=== PATIENT | female | born 1995 | race Caucasian/White ===

== ENCOUNTER → 2022-03-31 11:06 | Outpatient (CLI) | payer OTHER, SELFPAY ==
--- NOTE | ~2022-03-31 | US_ITS ---
EXAMINATION: US OB <=14 wk fetus w TV DATE: 03/31/2022 11:33 INDICATION: Threatened , first trimester TECHNIQUE: Real-time pelvic transabdominal and transvaginal ultrasound was performed. COMPARISON: Outside ultrasound dated 03/24/2022 FINDINGS: The uterus measures 9.6 x 5.8 x 5.7 cm. There is an intrauterine gestational sac. A yolk s ac is identified. No heart motion is detected. The crown rump length measures 5 mm , whic h correlates with an estimated gestational age of 6 weeks and 1 day(s) (+/-) 4 day(s). Previous crown -rump length measured 6 mm. The right ovary measures 2.9 x 1.9 x 2.4 cm. The left ovary measures 4 x 3.1 x 4.1 cm. There is savannah l vascular flow in the ovaries. There is no free fluid in the pelvis. IMPRESSION: 1. Findings consistent with failure. Absence of heart tones and a 5 mm pole wou ld be suspicious for failure as isolated findings however when coupled with decrease in microbiology laboratory manager wn-rump length since the comparison examination, findings are consistent with failure. Reviewed, dictated and finalized at location A. IMPRESSION: 1. Findings consistent with failure. Absence of heart tones and a 5 mm pole would be suspicious for failure as isolated findin gs however when coupled with decrease in crown-rump length since the comparison examination, findings are consistent with failure.
== END ==
PROVIDERS: PCP Obstetrics & Gynecology; Visit Provider Obstetrics & Gynecology
DX: O20.0 Threatened abortion (principal); Z3A.00 Weeks of gestation of pregnancy not specified
CPT/HCPCS: 76801; 76817

== ENCOUNTER 2023-05-06 00:01 | Inpatient (IN) | payer OTHER, SELFPAY ==
[2023-05-06] VITALS (49 sets, daily range): BP systolic 95–160; BP diastolic 34–99; PULSE 75–130; TEMP 36.1–37.3; O2SAT 97–100; BMI 30.4
[2023-05-06 00:43] LABS: Basophils Absolute Auto 0.1 K/mm3 (0.0-0.1); Basophils Percent Auto 0.8 % (0.2-1.2); Eosinophils Absolute Auto 0.3 K/mm3 (0-0.3); Eosinophils Percent Auto 1.9 % (0-4.4); Hematocrit 40.5 % (37.0-47.0); Hemoglobin 13.4 g/dL (12.0-15.0); Immature Granulocyte Absolute 0.14 K/mm3 (0.00-0.031); Lymphocytes Absolute Auto 3.55 K/mm3 (0.9-3.2); Lymphocytes Percent Auto 24.7 % (18.3-44.2); Mean Corpuscular HGB Conc 33.1 g/dl (32-36); Mean Corpuscular Hemoglobin 30.6 pg (26-34); Mean Corpuscular Volume 92.5 fl (80-100); Mean Platelet Volume 9.7 fl (7.4-10.4); Monocytes Absolute Auto 0.9 K/mm3 (0.1-0.6); Monocytes Percent Auto 6.3 % (2.6-8.5); Neutrophils Absolute Auto 9.4 K/mm3 (1.3-6.7); Neutrophils Percent Auto 65.3 % (45.5-73.1); Platelet Count Result 259 k/mm3 (150-375); Red Blood Count 4.38 M/mm3 (4.2-5.4); Red Cell Distribution Width 13.1 % (11.5-14.5); White Blood Count 14.4 K/mm3 (4.5-10.0)
[2023-05-06] MEDS: miSOPROStol 25 MCG TABLET 50 MCG SUBLINGUAL (00:46)
--- NOTE | 2023-05-06 00:55 | LDADM ---
This patient, Gloria Elam, was admitted to Labor/Delivery/Recovery 104 on 05/06/23 at 00:01. Plans for labor, pain management and were discussed with patient. Patient/family oriented to hospital policies and general routines including ID bracelet, bed and alarms, visiting hours, pain management, procedures, bathroom and other care routines, personal items, smoking policy, room service/diet and guest tray routines, security routines, and visiting hours. Patient/Family are encouraged to report perceived risks to care and to ask questions if they do not understand what they are told or what they should do. See OBIX for further documentation.
[2023-05-06 01:20] LABS: Glucose Point of Care 98 mg/dl (65-105)
[2023-05-06] MEDS: miSOPROStol 25 MCG TABLET VAGINAL (05:40)
[2023-05-06] MEDS: LACTATED RINGERS 1,000 ML 125 ML IV CONT (05:53)
[2023-05-06] MEDS: VANCOMYCIN 1,000 MG/NS 250 ML 1,000 MG/250 ML BAG 250 MG IVPB ×2 (05:53→13:25)
[2023-05-06 06:03] LABS: Glucose Point of Care 88 mg/dl (65-105)
--- NOTE | 2023-05-06 07:03 | WPDHPUPDATE1 ---
History and Physical Update Update Date/Time: 05/06/23 07:03 28 yo at 39w2d who presents for IOL for GDM. has been complicated by diet controlled gestational diabetes. She has had good glycemic control. History and Physical has been reviewed, including an updated exam of the patient. There are NO changes in the patient's condition. Risks, benefits, and alternatives have been discussed and questions answered. Patient agrees to proceed with procedure. A/P: admit to L&D routine admission orders Rh positive GBS positive bacteriuria, will initiate vancomycin continuous external monitoring Will monitor blood sugars throughout induction of labor Will plan for misoprostol induction of labor
--- NOTE | 2023-05-06 09:07 | WPDANESEPP ---
Anes - Eval Pre Procedure Procedure: labor epidural Date/Time: 05/06/23 09:07 Surgeon: flori Preop Diagnosis: pain during labor Pre Op Diagnosis: IOL Patient Data Age: 28 Gender: F Height: 1.73 m Weight: 90.718 kg Last Vital Signs Temp 36.6 C 05/06/23 06:14 Pulse 77 05/06/23 09:04 BP 106/63 05/06/23 09:04 O2 Del Method Room Air 05/06/23 00:55 Allergies Allergy/AdvReac Type Severity Reaction Status Date / Time cephalexin Allergy Severe Hives Verified 05/06/23 01:03 clavulanic acid Allergy Severe Hives Verified 05/06/23 05:37 Penicillins Allergy Severe Hives Verified 05/06/23 01:03 amoxicillin Allergy Mild hives Verified 05/06/23 01:03 Home Medications Medication Instructions Recorded Confirmed Type albuterol sulfate 90 mcg/actuation 1 puff inhalation Q4H PRN Wheezing 03/11/22 02/17/23 History aerosol inhaler vits no.10-ferrous 1 tablet PO DAILY 03/11/22 02/17/23 History fumarate 65 mg iron-folic acid 1 mg tablet triamcinolone acetonide 0.1 % 1 applic topical BID #60 mL 12/17/22 02/17/23 Rx lotion aspirin 81 mg tablet,delayed 162 mg PO DAILY 03/17/23 History release Laboratory Tests 05/06/23 05/06/23 05/06/23 00:37 01:15 05:58 WBC 14.4 H K/mm3 (4.5-10.0) RBC 4.38 M/mm3 (4.2-5.4) Hgb 13.4 g/dL (12.0-15.0) Hct 40.5 % (37.0-47.0) MCV 92.5 fl (80-100) MCH 30.6 pg (26-34) MCHC 33.1 g/dl (32-36) RDW 13.1 % (11.5-14.5) Plt Count 259 k/mm3 (150-375) MPV 9.7 fl (7.4-10.4) Immature Gran % (Auto) 1.0 H % (0-0.5) Neut % (Auto) 65.3 % (45.5-73.1) Lymph % (Auto) 24.7 % (18.3-44.2) [place] % (Auto) 6.3 % (2.6-8.5) Eos % (Auto) 1.9 % (0-4.4) Baso % (Auto) 0.8 % (0.2-1.2) Lymph # (Auto) 3.55 H K/mm3 (0.9-3.2) [place] # (Auto) 0.9 H K/mm3 (0.1-0.6) Eos # (Auto) 0.3 K/mm3 (0-0.3) Baso # (Auto) 0.1 K/mm3 (0.0-0.1) Abs Immat Gran (auto) 0.14 H K/mm3 (0.00-0.031) Absolute Neuts (auto) 9.4 H K/mm3 (1.3-6.7) Absolute Nucleated RBC 0.0 K/mm3 (0.0-0.012) Nucleated RBC % 0.0 % (0.0-0.2) POC Capillary Glucose 98 mg/dl 88 mg/dl (65-105) (65-105) RPR Pending Blood Type O Positive Antibody Screen Negative Patient hx anesthesia problems: none Family hx anesthesia problems: none Results Review: All pre-operative results and documents have been reviewed as part of the pre-operative evaluation. [facility] Past Medical History Medical History Asthma sports induced Blood glucose abnormal Encounter for Nexplanon removal 12/03/2021 Irregular periods Nexplanon in place Suppression of menses Surgical History Surgical History [place] teeth extracted Family History Family History Grandparent Diabetes mellitus Cerebrovascular accident Family history of malignant neoplasm of cervix Family history of malignant neoplasm of ovary Father Hypertension Mother Endometriosis Social History Social History Smoking status: Former smoker Tobacco type: e-cigarettes/vaping Second hand tobacco smoke exposure: No Smoking end date: 10/05/16 Substance use: never Lack of Transportation: No Lack of Food: Never True Current Housing: I Have Housing Concerned About Future Housing: No Difficulty Paying Gas/Electric Bills: No Difficulty Paying for Meds: No Currently Unemployed: No Education: Bachelor's Degree Difficulty w/ Childcare or Family Care: No Living arrangements: with family 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
[2023-05-06 09:21] LABS: Rapid Plasma Reagin Non-Reactive (NonReactive)
[2023-05-06 10:05] LABS: Glucose Point of Care 85 mg/dl (65-105)
[2023-05-06] MEDS: OXYTOCIN 30 UNITS/NS 500 ML 30 UNITS/500 ML BAG 6 UNITS IV CONT (10:33)
--- NOTE | 2023-05-06 12:02 | PM.OBPNLAB ---
Pain Control Date/time seen: 05/06/23 12:02 Pain control: tolerating well Pelvic Exam Dilation (cm): 2 Effacement (%): 60 station: -4 Amniotic membrane status: Intact Status status: Category l Assessment and Plan Assessment: induction ongoing Comments: cervical miller balloon placed. Will continue pitocin
[2023-05-06 14:28] LABS: Glucose Point of Care 66 mg/dl (65-105)
--- NOTE | 2023-05-06 16:48 | PC.NURSE ---
1635 - Introductions were made and mother shared how she would like to feed her baby with along with her past experience. Encouraged mother to place [id number] until the first feeding if infant is stable and to wait on the weight to help stabilize, reduce stress, and improve latching by allowing infant time to explore parent's chest using instincts. Education was shared on how to protect her milk supply with latching and/or using hand expression to remove milk if infant doesn't latch in the first hour, then finger feed colostrum to the to preserve breast focus. Resources provided with educational trifold for bonding and feeding . Parents voiced understanding of information and to call if there is a request for assistance.
[2023-05-06] MEDS: fentaNYL CITRATE INJ (*CRX) 100 MCG/2 ML VIAL 50 MCG IV PUSH (18:18)
[2023-05-06 18:25] LABS: Glucose Point of Care 76 mg/dl (65-105)
--- NOTE | 2023-05-06 21:25 | P.PCNOB_ITS ---
OB - Delivery Note Procedure Procedure: Patient pushed for a spontaneous vaginal delivery. Nuchal cord x1 was noted and reduced at the perineum. The fetus was delivered atraumatically and placed on the maternal abdomen. The cord was clamped and cut after 1 minute of life. The cord was double clamped and cut and a segment of cord was collected for cord gases. Cord blood was collected for blood type and Coomb's testing. The placenta delivered spontaneously and was noted to be intact. The perineum was inspected and there was a 2nd degree perineal laceration and right labial laceration. The lacerations were repaired with 3-0 vicryl in the usual fashion. The uterus was firm and good hemostasis was noted. The patient and fetus were stable in the delivery room. Events: Gestational Diabetes Induction method: Per Misoprostol Protocol Delivery augmentation: Pitocin and Other (cervical miller bulb) Delivery monitor: External FHT Route of delivery: Episiotomy description: None Laceration Description: Perineal - 2nd Degree and Labial (right) Delivery repair: vicryl Specimen: No Quantitative Blood Loss (ml): 200 Anesthesia type: None Disposition: Floor () Complications: No immediate complications [place] Baby Date of : 05/06/23 Time of : 20:59 Weeks of gestation at delivery: 39 Infant gender: Male presentation: vertex position: Right Occiput Anterior Placenta delivery description: Spontaneous Cord Vessel Description: 3 Vessels and Nuchal Cord score one minute: 8 score five minutes: 8 AMG Delivery Billing Delivery Delivery: Delivery Charge
[2023-05-06] MEDS: miSOPROStol 200 MCG TABLET 1000 MCG RECTAL (22:17)
[2023-05-06] MEDS: ACETAMINOPHEN 325 MG TABLET 650 MG PO (23:11)
[2023-05-06] MEDS: BENZOCAINE 20% AER SPR (*SP) 56 GM CAN 1 SPRAY TOPICAL (23:12)
[2023-05-06] MEDS: WITCH HAZEL 40 PADS 1 PAD TOPICAL (23:12)
[2023-05-07 00:01] VITALS: BP 128/73; PULSE 109
--- NOTE | 2023-05-07 00:35 | PC.NURSE ---
Patient transferred to post room #279 per wheelchair from labor and delivery. Support person present. Oriented to unit, room, information board, rooming in, admission packet and security measures. Patient verbalizes understanding.
[2023-05-07 00:50] VITALS: BP 123/74; PULSE 103; RESP 20; TEMP 37.1
--- NOTE | 2023-05-07 03:02 | LDADM ---
Patient 999 bag of PIT was started at 2102. IT was completed at 2114. Patient bag of 125 of Pit was started at 2114.
[2023-05-07 04:25] VITALS: BP 102/61; PULSE 98; RESP 18; TEMP 36.8
[2023-05-07 04:35] LABS: Hematocrit 32.5 % (37.0-47.0); Hemoglobin 10.5 g/dL (12.0-15.0)
[2023-05-07] MEDS: IBUPROFEN 600 MG TABLET PO ×2 (07:05→20:29)
[2023-05-07 08:10] VITALS: BP 111/71; PULSE 99; RESP 18; TEMP 36.9; O2SAT 99
--- NOTE | 2023-05-07 10:20 | P.PNOB_ITS ---
OB - PN: Subj Subjective Date/time seen: 05/07/23 10:20 Patient comments: no complaints, pain well controlled and tolerating diet [place] feeding status: exclusively breast feeding Narrative: patient doing well this AM. No complaints. Pain is well controlled. She reports minimal bleeding. She is ambulating and voiding without difficulty. She is tolerating PO. She denies N/V, fever, chills. OB - PN: Obj Data Labs 05/07/23 04:24 Labs: Laboratory Results - last 24 hr 05/06/23 05/06/23 05/07/23 14:23 18:19 04:24 Hgb 10.5 L Hct 32.5 L POC Capillary Glucose 66 76 OB - PN A/P Plan day: 1 Plan: routine care Comments: patient doing well H/H stable Patient desires circumcision. Risks, benefits, alternatives discussed. Maternal consent obtained. Will proceed with infant circumcision. continue routine care Time Spent With Patient Time: Total time spent is greater than 50% in coordination of care (as documented) at patient's floor/unit and/or counseling patient: Time with patient: less than 15 minutes Review of Systems Review of Systems: All systems reviewed & are unremarkable except as noted in HPI and below Exam Const: General: comfortable and no acute distress Resp: Effort & Inspection: normal respiratory effort Cardio: Rate: regular rate GI: GI Palp: Yes Soft to palpation and No Tenderness to palpation present (GI) Auscultation: normal bowel sounds Other: fundus firm and below umbilicus. Psych: Affect: normal affect
[2023-05-07] MEDS: MULTIVIT/MIN/PREN/FOL AC/IRON TABLET 1 TAB PO (11:15)
[2023-05-07] MEDS: ACETAMINOPHEN 325 MG TABLET 650 MG PO (11:15)
[2023-05-07 12:23] VITALS: BP 106/72; PULSE 99; RESP 16; TEMP 36.6; O2SAT 99
--- NOTE | 2023-05-07 15:52 | PC.NURSE ---
[id number] Purposefully rounded to assess for needs. Mother led conversation with her experience with feeding baby so far and has infant latched to the left breast using cross cradle positioning. detaches and mother's nipple is misshaped. Mother works well with her with encouragement and agrees to try football positioning again. Reviewed working with , supporting breast and how to protect the nipples with an optimal deep latch, good positioning, and good hand washing. Encouraged understanding the benefits of skin to skin, responding to feeding cues, frequencies of feeding 8-12 times in 24 hours (approximately 2-3 hours), duration of feedings, milk production, intake/output feeding sheet and signs of adequate intake encouraging swallowing at the breast. Reviewed positioning and alignment, supporting breast, off-centered (asymmetrical latch) and leading with the chin with big, open, wide gape. Infant latched optimally to the right breast in football position. Education given to mother of how to visualize suck/swallow ratios and listen for drinking at the breast. was able to maintain latch without discomfort to mother. Nipple care reviewed with optimal latch, good positioning and using clean hands when feeding her infant and touching her breast. Resources used to facilitate learning were used from the tool, mom and baby guide. Parents voiced understanding of the education shared, to call for assistance if the infant does not latch or if there is discomfort with . Reported to the primary RN. [id number] Purposefully rounded to assess needs. Reviewed working with , supporting breast and how to protect the nipples with an optimal deep latch, good positioning, and good hand washing. Demonstrated waking infant to breastfeed using a warm wet wash cloth. Reviewed positioning and alignment, supporting breast, off-centered (asymmetrical latch) and leading with the chin with big, open, wide gape. Infant latched optimally to the right breast in football position. Education given to mother of how to visualize suck/swallow ratios and listen for drinking at the breast. was able to maintain latch without discomfort to mother. Nipple care reviewed with optimal latch and good positioning. Parents voiced understanding of the education shared, to call for assistance if the does not latch or if there is discomfort with . Reported to the primary RN.
[2023-05-07 20:25] VITALS: BP 107/67; PULSE 90; RESP 18; TEMP 37.2
[2023-05-08 07:30] VITALS: BP 108/66; PULSE 81; RESP 16; TEMP 36.9; O2SAT 99
--- NOTE | 2023-05-08 08:24 | PM.OBDSVD ---
DS: Admitting Diagnosis Discharge Date 05/08/23 Admitting Diagnosis intrauterine at term gestational diabetes DS: Discharge Diagnosis Discharge Diagnosis (1) Supervision of high risk , unspecified, third trimester: Code(s): O09.93 - Supervision of high risk , unspecified, third trimester Status: Acute (2) Gestational diabetes: Code(s): O24.419 - Gestational diabetes mellitus in , unspecified control Status: Acute OB - DS: Summary OB Procedures : None OB Procedures Intrapartum: Spontaneous Vag Delivery OB Procedures: : None Status at Discharge Functional status at discharge: independent ambulation Overall status at discharge: patient is back to baseline Time Spent with Patient Time attestation: Total time spent providing and/or coordinating discharge services: Time spent: Less than 30 minutes Exam Const: General: comfortable and no acute distress Resp: Effort & Inspection: normal respiratory effort Auscultation: clear to auscultation bilaterally Cardio: Rate: regular rate GI: GI Palp: Yes Soft to palpation Auscultation: normal bowel sounds Other: Fundus firm below umbilicus Psych: Appearance: grossly normal Mental Status: mental status grossly normal Affect: normal affect DS: Data Data Completed and Pending Pending studies at discharge: Pending at discharge 05/06/23 21:15 Surgical [PTH] Routine Discharge Plan Discharge Discharging Clinician: Oscar Solomon Patient Disposition: Home, Self-Care Activity: as tolerated and pelvic rest Diet: regular Patient Instructions: Antibiotic Form, How to Stop Smoking (DC), Vaginal Delivery (DC) Stand Alone Forms: General Discharge Information Follow-up/Referrals: Oscar Solomon MD [Physician] - Discharge Medications: New ibuprofen 600 mg tablet 600 mg PO Q6H PRN (Reason: pain) Qty: 30 0RF acetaminophen 500 mg tablet 500 mg PO Q6H PRN (Reason: pain) Qty: 30 0RF Continued vit 10-iron fum-folic 65-1 mg tablet 1 tablet PO DAILY albuterol sulfate 90 mcg/actuation HFA aerosol inhaler 1 puff inhalation Q4H PRN (Reason: Wheezing) aspirin 81 mg tablet,delayed release (DR/EC) 162 mg PO DAILY triamcinolone acetonide 0.1 % lotion 1 applic topical BID Qty: 60 1RF Date of admission: 05/06/23 00:01 Primary Care Provider: LinoJuanito Admitting Provider: Nichol Rodriguez Attending physician on admission: Nichol Rodriguez Condition: Stable
[2023-05-08] MEDS: BENZOCAINE 20% AER SPR (*SP) 56 GM CAN 1 SPRAY TOPICAL (09:15)
[2023-05-08] MEDS: DOCUSATE SODIUM 100 MG CAPSULE PO (09:28)
[2023-05-08] MEDS: IBUPROFEN 600 MG TABLET PO (09:28)
[2023-05-08] MEDS: MEASLES,MUMPS,RUBELLA VACCINE 0.5 ML VIAL SUB-Q (09:29)
[2023-05-08] MEDS: WITCH HAZEL 40 PADS 1 PAD TOPICAL (09:29)
[2023-05-08] MEDS: MULTIVIT/MIN/PREN/FOL AC/IRON TABLET 1 TAB PO (09:29)
[2023-05-08] MEDS: LANOLIN (LANSINOH) 7.5 GM CREAM 1 APPLIC TOPICAL (09:29)
--- NOTE | 2023-05-08 10:28 | PC.NURSE ---
Patient viewed the discharge video Mother & Baby Care, The First Two Weeks . Patient was given the opportunity and encouraged to ask questions. Patient verbalized understanding of information shared and has been given the mother/baby guide for home reference.
[2023-05-09 08:55] VITALS: BP 112/75; PULSE 86; RESP 16; TEMP 37.1; O2SAT 99
== END 2023-05-08 10:47 | disposition home or self-care (01) | DRG 807 ==
LOC: ANHLDR 01:07 → ANHOB2 05-08 08:26 → ANHLDR 05-11 09:20 → ANHOB2 05-11 09:20
PROVIDERS: Obstetrics & Gynecology; Admitting Provider Student in an Organized Health Care Education/Training Program; PCP Internal Medicine; Visit Provider Student in an Organized Health Care Education/Training Program
DX: O24.429 Gestational diabetes mellitus in childbirth, unspecified control (principal); Z37.0 Single live birth; Z3A.39 39 weeks gestation of pregnancy; O70.1 Second degree perineal laceration during delivery; O69.81X0 Labor and delivery complicated by cord around neck, without compression, not applicable or unspecified; O99.824 Streptococcus B carrier state complicating childbirth
CPT/HCPCS: 36415; 82948; 85014; 85018; 85025; 86592; 86850; 86900; 86901; 88307; 90710; A9270; J2590; J3010; J3370; J7120

== ENCOUNTER 2024-08-06 10:11 | Outpatient (CLI) | payer OTHER, SELFPAY ==
--- NOTE | ~2024-08-06 | US_ITS ---
US OB <=14 wk fetus w TV DATE: 08/06/2024 10:54 INDICATION: Assessment of viability TECHNIQUE: Real-time imaging and Doppler analysis transabdominal and transvaginal approaches COMPARISON: None FINDINGS: The uterus measures 10.0 cm sagittal, 6.5 cm AP and 7.4 cm transverse dimension. There is a single live intrauterine gestation. heart rate of 176 bpm. Yolk sac is identified. There is a 4.5 x 13 x 17 mm subchorionic hematoma. [place]-rump length measures 2.24 cm, consistent with 9 weeks +/- 6 days; MAURA: 03/11/2025. Maternal right ovary measures 2.2 x 2.2 x 1.8 cm. Maternal left ovary measures 3.4 x 2.4 x 3.3 cm. IMPRESSION: Subchorionic hematoma Estimated gestational age is 9 weeks +/- 6 days; MAURA: 03/11/2025 Reviewed, dictated and finalized at Location A. Reviewed, dictated and finalized at location A.
== END 2024-08-06 10:12 | disposition home or self-care (01) ==
LOC: MICIMG 10:11
PROVIDERS: PCP Internal Medicine; Visit Provider Student in an Organized Health Care Education/Training Program
DX: N94.89 Other specified conditions associated with female genital organs and menstrual cycle (principal); Z3A.09 9 weeks gestation of pregnancy
CPT/HCPCS: 76801; 76817

== ENCOUNTER 2025-03-17 04:40 | Inpatient (IN) | payer OTHER, SELFPAY ==
[2025-03-17] VITALS (27 sets, daily range): BP systolic 105–160; BP diastolic 43–140; PULSE 89–166; RESP 18–20; TEMP 36.6–37.4; O2SAT 94–100; BMI 32.7
--- OUTSIDE RECORDS SUMMARY | 2025-03-17 04:49 | XMS_ITS | Clinical Summary ---
Author Organization [facility] [place] Address [address] [place] [address] Care Team Providers Care Dry Plasterer Name Role Phone Yesenia Arriaga MD Unavailable Yesenia Arriaga MD Primary Care Provider [phone] Source Comments [facility],non-owned Affiliates and Associated Physician Practices is amultiple site organization consisting of ambulatory clinics and hospital sitesin [place], [place], [place]. This disclosure is being madepursuant to the Care Everywhere program and may not contain all information available regarding this patient. Last updated 18.[facility] Allergies Active Allergy Reactions Criticality Noted Date Comments Keflex Urticaria,Shortness of Breath High 2008 Penicillins Urticaria,Shortness of Breath High 08/23 Medications * Be aware that medications may not be up to date on this document. Alwaysverify current medications with the patient. SUMAtriptan (IMITREX) 50 MG tabletIndicatio ns:Migraine Take 1 Tab by mouth once as needed for Migraine for 1 dose. 9 Tab 3 07/04/20 13 Active Additional Information Patient not taking.Reported on 12/03/2022 Vit-Fe Fumarate-FA ( vitamin) 28-0.8 MG tablet Take 1 (one) tablet by mouth once daily Active albuterol (Proventil;Vent ezequiel) (2.5 MG/3ML) 0.083% nebulizer solutionIndicat ions:Reversible Obstructive Airway Disease Inhale by mouth once daily Reasons: Reversible Disease of Blockage in Breathing Passages Active fluticasone-tono meterol (Advair Diskus) 100-50 MCG/ACT inhalerIndicati ons:Asthma Inhale 1 (one) puff by mouth 2 times daily Rinse mouth after administration Reasons: Asthma 60 Each 2 12/04/19 23 Active Active Problems Problem Noted Date Diagnosed Date Diet controlled gestational diabetes mellitus (GDM) in second trimester 01/27/2023 Asthma 12/03/2022 Allergic rhinitis 07/13/2012 Migraine 07/13/2012 Immunizations Immunization Administration Dates Next Due INFLUENZA VACCINE, TRIV. (AF LURIA, FLUZONE TRIVALENT; 6MO+) (IIV3) 07/30/2010 DPT 02/26/2001, 7,1996,06/30,1996 HEP A PEDS 2 DOSE 05/20/2007,04/28/2006 HEP B VACCINE, PED/ADOL 1996,1996, HIB BOOSTER 06/15/1997, 6,1996,04/25 Human Papilloma Virus Carlo valent Vaccine 01/17/2013,09/13/2012,07/13/2012 INFLUENZA A A2G0-89 VACCINE 08/13/2009 INFLUENZA VACCINE 08/17/2006,07/30/2005 MENINGOCOCCAL ACWY (MCV4P) VAC IM 07/13/2012 MMR 02/26/2001,03/10/1997 POLIO IPV 02/26/2001 POLIO OPV 1996,1996,1996 PPD 02/27/2000,03/10/1997 TDAP (7yrs+) 04/28/2006 Family History Medical History Relation Name Comments High Cholesterol Father Cancer - Cervical Maternal Grandmother Diabetes - Type 2 Maternal Grandmother Hypertension Mother Diabetes - Type 2 Paternal Grandmother IN<65(female) Paternal Grandmother Relation Name Status Comments Father Maternal Grandmother Mother Other Paternal Grandmother Social History Tobacco Use Types Packs/Day Years Used Date Smoking Tobacco: Never Smokeless Tobacco: Never Tobacco Cessation:Counseling Given: Not Answered Alcohol Use Standard Drinks/Week Comments Not Currently 0 (1 standard drink = 0.6 oz pur e alcohol) Comments No Sex and Gender Information Value Date Recorded Sex Assigned at Not on file Legal Sex Female 6:48 AM TRANSITIONAL NURSE Gender Identity Not on file Sexual Orientation Not on file Last Filed Vital Signs Vital Sign Reading Time Taken Comments Blood Pressure 127/77 12/03/2022 9:29 AM TRANSITIONAL NURSE Pulse 85 12/03/2022 9:29 AM TRANSITIONAL NURSE Temperature 36.4 C (97.6 F) 07/28/2013 8:56 AM CDT Respiratory Rate 16 04/26/2010 9:13 AM CDT Oxygen Saturation - - Inhaled Oxygen Concentration - - Weight 89.4 kg (197 lb 3.2 oz) 12/03/2022 9:29 A M TRANSITIONAL NURSE Height 172.7 cm (5' 8) 12/03/2022 9:29 AM TRANSITIONAL NURSE Body Mass Index 29.98 12/03/2022 9:29 AM TRANSITIONAL NURSE Plan of Treatment Health Maintenance Due Date Last Done Comments HIV SCREENING 02/20/2011 HEPATITIS C SCREENING 02/16/2014 PNEUMOCOCCAL VACCINE (1 of 2 - PCV) 02/20/2015 DTAP/TDAP/TD VACCINES (7 - Td or Tdap) 04/28/2016 04/28/2006, 02/26/2001, 06/15/1997, Additional history exists PAP SMEAR 02/20/2017 COVID-19 VACCINE (1 - season) 2024 DEPRESSION SCREENING 10/05/2024 INFLUENZA VACCINE (Season Ended) 2025 07/30/2010, 08/13/2009, 08/17/2006, Additional history exists ZOSTER VACCINE (1 of 2) 02/20/2046 HEPATITIS B VACCINE Completed 1996, 1996, 1996 HIB VACCINE Completed 06/15/1997, 02/1996, 1996, Additional history exists MENINGOCOCCAL GROUPS A/C/Y/W VACCINE Completed 07/13/2012 HPV VACCINE Completed 01/17/2013, 09/04, 07/13/2012 MENINGOCOCCAL (Group B) VACCINE SHARED DECISION-MAKING Aged Out No longer eligible based on patient's age to complete this topic Insurance [facility] C[facility] Care Teams Dry Plasterer Relationship Specialty Start Date End Date Yesenia Arriaga MD PCP - Pediatrics 04/26/10 Yesenia Arriaga MD PCP - General Pediatrics 01/12/12
--- OUTSIDE RECORDS SUMMARY | 2025-03-17 04:49 | XMS_ITS | Encounter Summary ---
Author Organization [facility] Address [address] [place] [address] Care Team Providers Care Button Tufter Name Role Phone Yesenia Arriaga MD Unavailable Yesenia Arriaga MD Primary Care Provider [phone] Reason for Visit * Reason Comments Refill Request Encounter Details Date Type Department Care Team (Late st Contact Info) Description 02/09/2023 Refill [facility] Women's Health Maternal & Care [address] [place], [place] [id number] Ana Nguyễn, ELECTRICAL PROSPECTING OPERATOR-[facility] [address] [address] Refill Request Social History Tobacco Use Types Packs/Day Years Used Date Smoking Tobacco: Never Smokeless Tobacco: Never Alcohol Use Standard Drinks/Week Comments Not Currently 0 (1 standard drink = 0.6 oz pur e alcohol) Comments Yes Sex and Gender Information Value Date Recorded Sex Assigned at Not on file Legal Sex Female 6:48 AM SUPERVISOR GARMENT MANUFACTURING Gender Identity Not on file Sexual Orientation Not on file documented as of this encounter Plan of Treatment Not on file documented as of this encounter Visit Diagnoses Not on filedocumented in this encounter Care Teams Button Tufter Relationship Specialty Start Date End Date Yesenia Arriaga MD PCP - Pediatrics 04/26/10 Yesenia Arriaga MD PCP - General Pediatrics 01/12/12 documented as of this encounter
--- OUTSIDE RECORDS SUMMARY | 2025-03-17 04:49 | XMS_ITS | Data Portability ---
Author Organization [facility] Address [address] [place] [address] Assessment Encounter Date Assessment Date Assessment LastModified by Organization Details LastModified Time 01/20/2024 01/20/2024 I will get her seen by podiatry to see if they can do a further evaluation and possibly inspect a little bit closer to see if there is some ceramic tile that deeper in the [id number] Not available 01/30/2024 14:30:45 Plan of Treatment Reminders Order Date Submit Date Provider Last Modified By Organization Details Last Modified Time Details Appointments None record ed. Lab None record ed. Referral None record ed. Procedures None record ed. Surgeries None record ed. Imaging None record ed. Medication Orders None record ed. Patient TargetsNo targets recorded. Patient InstructionsNo instructions recorded. Reason for Referral None Reported. Results Created Date Observation Date Name Description Value Unit Range Abnormal Flag Note LastModifiedBy Organization Detail LastModifiedTime 08/06/20 24 08/06/2024 US, obste tric No observ ation record ed. [email or web address] [facility] [address], [place], [address], 08/08/2024 15:41:39 Result Notes None recorded. Medical Equipment None Reported. Allergies Allergen ID Allergen Name Allergen Category Reaction Reaction Severity Criticality Documentation Date Start Date Code Code System Note Provider Name and Address Organization Details Recorded Time 120951 Product containin g penicilli n (product) medicatio n wheezing moderate low 01/20/2024 71774 8001 SNOMED hives MYLES Remy, [facility] 09:48:34 [id number] Keflex medicatio n wheezing moderate Not available 01/20/202403498 7 RxNorm hives also MYLES Remy, [place] - [facility] 4 09:48:10 Medications Name Sig Start Date Stop Date Status Note LastModified by Organization Details LastModified Time fluticasone 250 mcg-salmetero l 50 mcg/dose blistr powdr for inhalation INHALE 1 PUFF BY MOUTH TWICE DAILY active Not Available Not Available No t Available fluconazole 150 mg tablet TAKE 1 TABLET BY MOUTH 1 TIME active Not Available Not Available No t Available ondansetron HCl 4 mg tablet TAKE 1 TABLET BY MOUTH EVERY 6 HOURS NEEDED FOR NAUSEA OR VOMITING active Not Available Not Available No t Available pimecrolimus 1 % topical cream active Not Available Not Available Not Available acetaminophen 500 mg tablet TAKE 1 TABLET BY MOUTH EVERY 6 HOURS NEEDED FOR PAIN active Not Available Not Available No t Available metoclopramid e 5 mg tablet TAKE 1 TABLET BY MOUTH DAILY active Not Available Not Available No t Available tacrolimus 0.1 % topical ointment active Not Available Not Available Not Available ibuprofen 600 mg tablet TAKE 1 TABLET BY MOUTH EVERY 6 HOURS NEEDED FOR PAIN active Not Available Not Available No t Available clindamycin 1 % lotion active Not Available Not Available Not Available OneTouch Verio test strips USE TO TEST BLOOD SUGARS FOUR TIMES DAILY active Not Available Not Available No t Available Combivent Respimat 20 mcg-100 mcg/actuation solution for inhalation INHALE 1 PUFF BY MOUTH FOUR TIMES DAILY NEEDED FOR SHORTNESS OF BREATH OR WHEEZING. SPACE EVENLY WHILE AWAKE active Not Available Not Available No t Available Amzeeq 4 % topical foam active Not Available Not Available Not Available Vitals Date Recorded Body height Body mass index (BMI) Body weight Heart rate Oxygen saturation Oxygen saturation in Arterial blood by Pulse oximetry Systolic blood pressure Diastolic blood pressure Provider Name and Address Organization Details Last Updated DateTime 4 172.72 cm 26.8 kg/m2 58225.6 9 g 81 /min 98 % 98 % 124 mm[Hg] 72 mm[Hg] JAMESON Poll[place] - [facility] 4 14:16:46 Social History Question Answer Notes LastModified by Organizat ion Details LastModified Time Tobacco Smoking Status Never Smoker JAMESON Poll[place], [place] - [facility] 01/20/2024 14:11:39 Do You Have An Advance Directive? No Information not available 01/20/2024 How Many Years Have You Consumed Alcohol? 6 Information not available 01/20/2024 Are You Blind Or Do You Have Difficulty Seeing? Yes Contacts Information not available 01/20/2024 What Is Your Level Of Caffeine Consumption? Moderate Information not available 01/20/2024 In The 14 Days Before Symptom Onset, Have You Had Close Contact With A Laboratory-confir med COVID-19 While That Case Was Ill? No Information not available 01/20/2024 In The 14 Days Before Symptom Onset, Have You Had Close Contact With A Person Who Is Under Investigation For COVID-19 While That Person Was Ill? No Information not available 01/20/2024 Have You Been To An Area Known To Be High Risk For COVID-19? No Information not available 01/20/2024 Are You Deaf Or Do You Have Serious Difficulty Hearing? No Information not available 01/20/2024 What Is The Highest Grade Or Level Of School You Have Completed Or The Highest Degree You Have Received? [id number] Information not available 01/20/2024 Are There Any Guns Present In Your Home? Yes Information not available 01/20/2024 What Was The Date Of Your Most Recent Tobacco Screening? 01/20/2024 Information not available 01/20/2024 What Is Your Relationship Status? Information not available 01/20/2024 Do You Use Your Seat Belt Or Car Seat Routinely? Yes Information not available 01/20/2024 Do You Have Smoke And Carbon Monoxide Detectors In Your Home? Yes Information not available 01/20/2024 Do You Use Sunscreen Routinely? Yes Information not available 01/20/2024 Sex: Female Functional Status Question Answer Note LastModified by Organizat ion Details LastModified Time Do you use any illicit or recreational drugs? No Information not available 01/20/2024 What is your level of alcohol consumption? Occasional Information not available 01/20/2024 Are you currently employed? Yes Information not available 01/20/2024 Are you able to care for yourself? 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 [id number] Information not available 01/20/2024 Family History Relationship Description Onset Age of this Age Resolved Age Notes LastModified by Organization Details LastModified Time Father Harmful pattern of use of alcohol mebyma Not available 2023 14:10:56 Father Asthma mebyma Not available 14:11:02 Father Hypertensive disorder mebyma Not available 2023 14:11:09 Father Diabetes mellitus mebyma Not available 2023 14:11:17 Medical History Condition Response Coronary Artery Disease N Other N High Blood Pressure N Atrial Fibrillation N Thyroid Problems N Kidney or Bladder Problems N GI Problems N Depression N COPD N Blood Clots N Skin Problems Y Anemia N Heart Attack ([place]) N Anxiety Disorder N Diabetes N Muscle, Joint, or Bone Problems N Seizures/Epilepsy N Acid Reflux (GERD) N Cancer N Stroke N Asthma Y Allergies Y High Cholesterol N Hepatitis N Liver Disease N Headaches N Osteoporosis N Heart Failure N Gynecological History Statement/Question Response Current Control Method None Date of LMP 12/24/2023 Obstetrics History GPAL:G 0 P 0 0 0 0 Immunizations Vaccine Type Date Status Note Provider Nam e and Address Organization Details Recorded Time Tdap 12/03/2022 kimberly Martin LPN [facility] 01/20/2024 09:55:06 Past Encounters Encounter ID Performer Location Encounter Start Date Encounter Closed Date Diagnosis/Indication Diagnosis SNOMED-CT Code Diagnosis ICD10 Code Diagnosis Note [id number] Juanito Huynh MD [facility] (Adult Med) [address] [place] [phone] 01/20/2024 13:53:06 01/20/2024 15:14:53 Foot pain [id number] M79.672 Health Concerns Section Related Observation LastModified by Organization Detai ls LastModified Time None Recorded Concern Status LastModified by Organization Details LastModified Time None Recorded Advance Directives Directive N: Payers Insurance Date Sequence Insurance Name Policy Number Policy Hodges Covered Member ID Hodges Member ID Guarantor Name 01/06/2025 1 [facility] [id number] Gloria Elam [id number] Gloria Elam Notes Date Note Type Note Provider Name and Address Organization Details Recorded Time 01/20/2024 text/html 28-year-old who comes in because she stepped broken tile couple of weeks ago and she just has some pain in her left foot she just is worried that there may be something in there because it is not healing no fever chills no other injury. Past medical history of asthma but has not needed inhaler for quite some time and she does have some allergies flareup every now and again Juanito Huynh MD Attn: Accounting,[address] [place], [address], [facility] - [facility] 01/30/2024 14:31:13 OBGyn Episode Ob Episode Information Episode Created Date Number of Fetuses Patient Bloodtype Patient rh Status Prepregnancy Weight lbs Domestic Partner Domestic Partner Phone Father Name Panel Maker Status 01/20/20 24 1 CLOSED Fetus Data First Name Last Name Admitted to NICU Weight (g) Sex Living Outcome Pediatric Complications Fetus ID Race Codes Race Delivery Type 3600.15 9704 M Full Term [id number] Vaginal Only Fercho Calculation Initial Fercho Date Initial Exam Date Initial Exam Provider Initial Ultrasound Date Last Menstrual Period Date Ultra Sound Weeks Gestation 0 Eighteen To Twenty Week Fercho Update Ultra Sound Date Fundal Height At Umbil Quickening Date Ultra Sound Latest Weeks Gestation Final Fercho Confirmed By Final Fercho Confirmed Date Final Fercho Date Ultra Sound Latest Days Gestation 0 0 Menstrual History Last Menstrual Date Menses Monthly On Bcp Conception Prior Menses Frequency Hcg Plus Date Menarche Onset Age Delivery Information Delivery Date Delivery Type Labor Anesthesia Weeks Gestation Incision Type Labor Labor Length Hrs Delivered By Post Complications Tubal Sterilization Discharge Date Comments 3 Discharge Information Feeding Method Contraceptive Method Maternal HG B and HCT Levels
--- NOTE | 2025-03-17 04:56 | LDADM ---
This patient, Gloria Elam, was admitted to Labor/Delivery/Recovery 103 on 03/17/25 at 04:40. Plans for labor, pain management and were discussed with patient. Patient/family oriented to hospital policies and general routines including ID bracelet, bed and alarms, visiting hours, pain management, procedures, bathroom and other care routines, personal items, smoking policy, room service/diet and guest tray routines, security routines, and visiting hours. Patient/Family are encouraged to report perceived risks to care and to ask questions if they do not understand what they are told or what they should do. See OBIX for further documentation.
[2025-03-17 05:38] LABS: Basophils Absolute Auto 0.1 K/mm3 (0.0-0.1); Basophils Percent Auto 0.5 % (0.2-1.2); Eosinophils Absolute Auto 0.2 K/mm3 (0-0.3); Eosinophils Percent Auto 1.9 % (0-4.4); Hematocrit 37.7 % (37.0-47.0); Hemoglobin 12.5 g/dL (12.0-15.0); Immature Granulocyte Absolute 0.24 K/mm3 (0.00-0.031); Immature Granulocyte Percent A 1.9 % (0-0.5); Lymphocytes Absolute Auto 3.07 K/mm3 (0.9-3.2); Lymphocytes Percent Auto 23.9 % (18.3-44.2); Mean Corpuscular HGB Conc 33.2 g/dl (32-36); Mean Corpuscular Hemoglobin 30.2 pg (26-34); Mean Corpuscular Volume 91.1 fl (80-100); Mean Platelet Volume 9.5 fl (7.4-10.4); Neutrophils Absolute Auto 8.2 K/mm3 (1.3-6.7); Neutrophils Percent Auto 63.8 % (45.5-73.1); Platelet Count Result 274 k/mm3 (150-375); Red Blood Count 4.14 M/mm3 (4.2-5.4); Red Cell Distribution Width 14.6 % (11.5-14.5); White Blood Count 12.8 K/mm3 (4.5-10.0)
[2025-03-17 06:16] LABS: Syphilis IgG/IgM Antibody Non-Reactive (Nonreactive)
[2025-03-17] MEDS: ONDANSETRON INJ 4 MG/2 ML VIAL IV PUSH (06:41)
--- NOTE | 2025-03-17 07:04 | P.HP_ITS ---
H&P: HPI History of Present Illness Date/Time: 03/17/25 07:04 Chief Complaint: SROM Narrative: Gloria is a 30yo @ 40.6wks who presented with SROM overnight, 2300 @ 03/16/25. She reports moderately strong contractions. Review of Systems Constitutional: Constitutional: Denies chills, Denies fever(s) and Denies headache(s) Eyes: Eyes: Denies change in vision ENT: Denies headache(s) Cardiovascular: Cardiovascular: Denies chest pain and Denies dyspnea Respiratory: Respiratory: Denies dyspnea Genitourinary: Genitourinary: Denies abnormal vaginal bleeding and Reports vaginal discharge Neurologic: Denies headache(s) Psychiatric: Psychiatric: Denies anxiety and Denies depression [facility] Past Medical History Medical History Blood glucose abnormal Irregular periods Suppression of menses Encounter for Nexplanon removal 12/03/[address] Asthma sports induced Surgical History Surgical History [place] teeth extracted Family History Family History Grandparent Family history of malignant neoplasm of ovary Diabetes mellitus Family history of malignant neoplasm of cervix Cerebrovascular accident Father Hypertension Diabetes mellitus Mother Endometriosis Diverticulitis Social History Social History Smoking status: Former smoker Tobacco type: cigarettes and e-cigarettes/vaping Second hand tobacco smoke exposure: No Smoking end date: 10/05/16 Alcohol intake: never Substance use: never Do You Feel Safe in your Home?: Yes Lack of Transportation: No Lack of Food: Never True Current Housing: I Have Housing Concerned About Future Housing: No Difficulty Paying Gas/Electric Bills: No Difficulty Paying for Meds: No Currently Unemployed: No Education: Bachelor's Degree Difficulty w/ Childcare or Family Care: No Living arrangements: with family 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n 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 Gender identity (if verbalized by the patient): Female Sexual Orientation (if Verbalized by the Patient): Straight or Heterosexual Spiritual care concerns: No Agree to blood products: No Meds Home Medications and Allergies Home Medications ?Medication ?Instructions ?Recorded ?Confirmed ?Type albuterol sulfate 90 mcg/actuation 1 puff inhalation Q4H PRN Wheezing 03/11/22 03/13/25 History aerosol inhaler vits no.10-ferrous 1 tablet PO DAILY 03/11/22 03/13/25 History fumarate 65 mg iron-folic acid 1 mg tablet fluticasone 250 mcg-salmeterol 50 1 inh inhalation BID #60 ea 02/21/25 03/13/25 Rx mcg/dose blistr powdr for inhalation (Advair Diskus) Allergies Allergy/AdvReac Type Severity Reaction Status Date / Time cephalexin Allergy Severe Hives Verified 03/13/25 13:52 clavulanic acid Allergy Severe Hives Verified 03/13/25 13:52 Penicillins Allergy Severe Hives Verified 03/13/25 13:52 amoxicillin Allergy Mild hives Verified 03/13/25 13:52 Vital Signs Vital Signs - 24 hr 03/17/25 04:52 03/17/25 04:53 03/17/25 04:56 Temperature Pulse Rate 100 Respiratory Rate Blood Pressure 126/83 Pulse Oximetry 100 Oxygen Delivery Room Air 03/17/25 05:00 03/17/25 05:15 03/17/25 05:30 Temperature 97.8 F Pulse Rate 99 92 Respiratory Rate 20 Blood Pressure 118/75 121/82 Pulse Oximetry Oxygen Delivery 03/17/25 06:07 Temperature Pulse Rate 98 Respiratory Rate Blood Pressure 130/79 Pulse Oximetry Oxygen Delivery Exam Const: General: cooperative, no acute distress and obese Nutritional Appearance: obese Orientation/consciousness: patient oriented x3 Resp: Effort & Inspection: normal respiratory effort Cardio: Rate: regular rate GI: GI Palp: No abdominal tenderness : Other: FHT's: 140's/ mod sunny/ + accels/ no decels - cat 1 TOCO: ctxs q4-5min Cervix: 5.5/70/-3 Membranes: SROM, clear 2300 at 03/16/25 Presentation: cephalic Skin: General skin exam: normal color Neuro: General: patient oriented x3 Extrem: General: normal to inspection Psych: Appearance: grossly normal Affect: normal affect Attitude: cooperative H&P: Results Labs Labs: Short CBC 03/17/25 Range/Units 05:25 WBC 12.8 H (4.5-10.0) K/mm3 Hgb 12.5 (12.0-15.0) g/dL Hct 37.7 (37.0-47.0) % Plt Count 274 (150-375) k/mm3 Assessment and Plan Assessment and plan (1) Spontaneous rupture of amniotic membranes: Status: Acute Plan - SROM with regular contractions; pt has been declining pitocin, wants to be all natural - Has made good cervical change and is ruddy adequately - GBS negative; antibiotics at 18hour ROM - Anesthesia consult PRN but pt would like to go all natural
[2025-03-17 08:43] LABS: HIV 1/2 Ab P24 Ag Result Negative (Negative)
[2025-03-17] MEDS: fentaNYL CITRATE INJ (*CRX) 100 MCG/2 ML VIAL 50 MCG IV PUSH (09:49)
--- NOTE | 2025-03-17 12:08 | PM.OBPNLAB ---
Pain Control Date/time seen: 03/17/25 12:08 Pain control: tolerating well Pelvic Exam Dilation (cm): 8 Effacement (%): 80 station: -3 Amniotic membrane status: Ruptured Comments: forebag ruptured Contractions Monitor mode: External Contraction frequency: 2 Contraction pattern: Regular Status status: Category ll Comments: variables with contractions Assessment and Plan Assessment: active labor Plan: continuous present management
[2025-03-17] MEDS: LACTATED RINGERS 1,000 ML 125 ML IV CONT (13:04)
[2025-03-17] MEDS: OXYTOCIN 30 UNITS/NS 500 ML 30 UNITS/500 ML BAG 999 UNITS IV CONT (13:44)
--- NOTE | 2025-03-17 13:45 | S_PTH ---
PATIENT: Gloria Elam I LOC: ANHOB2 U#:[id number] AGE/SX: 30/F ROOM: 282 RE03/17/[address]: Pritesh Stacy MD : 1995 BED: 00 DIS: 03/18/2025 SPEC #: [id number] RECD: 03/20/25 10:58 STATUS: CHRIS RETadeo #: [id number] EB: 03/17/25 13:[address]: Nichol Rodriguez DEPT: [facility] Surgical RECD BY: Gissel Ocasio ENTERED: 03/20/25 10:58 SP TYPE: Surgical OTHR DR: TRANSMISSION SPECIALIST PHYSICIAN Oscar Solomon MD Tissues: A - Placenta Procedures: Hematoxylin and Eosin Stain Gross and Microscopic Level 5
[2025-03-17] MEDS: miSOPROStol 200 MCG TABLET 800 MCG (13:58)
--- NOTE | 2025-03-17 14:16 | PM.OBPRVD ---
OB - Vaginal Delivery Note Procedure Delivery date: 03/17/25 Delivery monitor: External FHT and External Uterine Route of delivery: Episiotomy description: None Laceration Description: Perineal - 1st Degree Delivery repair: vicryl Specimen: Yes (placenta) Quantitative Blood Loss (ml): 400 Anesthesia type: Local Disposition: Floor Complications: No immediate complications Baby Date of : 03/17/25 Time of : 13:42 Gestational Age by Date: 40 (6) gender: Female presentation: vertex position: Left Occiput Anterior Placenta delivery description: Expressed Cord Vessel Description: 3 Vessels and Delayed Cord Clamping score one minute: 8 score five minutes: 9 Narrative: Gloria progressed to complete dilation with strong desire to push. She pushed for 2 contractions and delivered the head over intact perineum. No nuchal cord was palpated. She easily delivered the infant's shoulders and body without complication. The was immediately placed skin to skin and her mouth was bulb suctioned, cry was then heard. Delayed cord clamping was performed. The umbilical cord was then doubly clamped and cut by father the baby. A segment of cord was collected for cord gases. The remaining cord blood was collected for typing. With Pitocin running and gentle downward traction on the cord, the placenta delivered without complication. Brisk bleeding was then noted and bimanual massage revealed slight atony which did respond to massage. She was examined and a small first-degree perineal laceration was identified. The laceration was anesthetized using 1% lidocaine without epinephrine. The laceration was reapproximated without complication using 2-0 Vicryl fundal massage was once again performed and little bit of increase in bleeding was noted. Cytotec 800 mcg was placed rectally she did have significant bleeding with her prior delivery. Sponge, lap, instrument, and needle counts were correct at the end of the procedure. Mom and baby were left bonding in the birthing suite in stable condition.
[2025-03-17] MEDS: OXYTOCIN 30 UNITS/NS 500 ML 30 UNITS/500 ML BAG 125 UNITS IV CONT (14:18)
[2025-03-17] MEDS: LIDOCAINE 1% LOCAL INJ 20 ML VIAL (14:24)
[2025-03-17] MEDS: IBUPROFEN 600 MG TABLET (16:17)
--- NOTE | 2025-03-17 16:55 | OBPPTRN ---
1655-Patient transferred to post room #282 via wheelchair. Support person present. Oriented to unit, room, information board, rooming in, admission packet and security measures. Patient verbalizes understanding.
[2025-03-17] MEDS: ACETAMINOPHEN 325 MG TABLET 650 MG PO (18:45)
[2025-03-17] MEDS: IBUPROFEN 600 MG TABLET PO (21:45)
[2025-03-18] MEDS: ACETAMINOPHEN 325 MG TABLET 650 MG PO ×2 (00:48→08:58)
[2025-03-18 04:10] VITALS: BP 108/63; PULSE 88; RESP 18; TEMP 36.8
[2025-03-18] MEDS: IBUPROFEN 600 MG TABLET PO ×2 (04:10→11:07)
[2025-03-18 05:34] LABS: Hematocrit 35.2 % (37.0-47.0); Hemoglobin 11.4 g/dL (12.0-15.0); Mean Corpuscular HGB Conc 32.4 g/dl (32-36); Mean Corpuscular Hemoglobin 30.1 pg (26-34); Mean Corpuscular Volume 92.9 fl (80-100); Mean Platelet Volume 9.6 fl (7.4-10.4); Platelet Count Result 265 k/mm3 (150-375); Red Blood Count 3.79 M/mm3 (4.2-5.4); Red Cell Distribution Width 14.8 % (11.5-14.5); White Blood Count 23.8 K/mm3 (4.5-10.0)
--- NOTE | 2025-03-18 07:29 | P.PNOB_ITS ---
OB - PN: Subj Subjective Date/time seen: 03/18/25 07:29 Patient comments: pain well controlled, tolerating diet and other (Decreasing lochia.) baby status: doing well OB - PN: Obj Data Labs 03/18/25 04:47 Labs: Laboratory Results - last 24 hr 03/17/25 03/18/25 05:25 04:47 WBC 23.8 H RBC 3.79 L Hgb 11.4 L Hct 35.2 L MCV 92.9 MCH 30.1 MCHC 32.4 RDW 14.8 H Plt Count 265 MPV 9.6 HIV 1&2 Ab/P24 Ag 4thGn Negative OB - PN A/P Plan day: 1 Plan: routine care and discharge home Comments: Patient doing well. She request discharge today. Time Spent With Patient Time: Total time spent is greater than 50% in coordination of care (as documented) at patient's floor/unit and/or counseling patient: Exam 2 Psych: Affect: normal affect Other: Abd: fundus firm below umbilicus, nontender Perineum: healing Ext: nontender
--- NOTE | 2025-03-18 07:29 | P.DS_ITS ---
DS: Admitting Diagnosis Discharge Date 03/18/25. Admitting Diagnosis Spontaneous rupture of membranes DS: Discharge Diagnosis Discharge Diagnosis (1) Vaginal delivery: Code(s): O80 - Encounter for full-term uncomplicated delivery Status: Acute OB - DS: Summary OB Procedures : Ultrasound OB Procedures Intrapartum: Spontaneous Vag Delivery OB Procedures: : None Peripartum Data Delivery Method: Natural Vaginal Laceration Description: Perineal - 1st Degree Episiotomy description: None complications: none Status at Discharge Functional status at discharge: independent ambulation Time Spent with Patient Time attestation: Total time spent providing and/or coordinating discharge services: Exam Const: General: cooperative Orientation/consciousness: oriented to person, oriented to place and oriented to time HENMT: Face/Nose/Sinus: Normal external nose present Eyes: General: appearance normal, both eyes and all related structures Resp: Effort & Inspection: normal respiratory effort GI: Inspection: normal to inspection Skin: General skin exam: normal color Neuro: General: oriented to person, oriented to place and oriented to time Extrem: General: normal to inspection and no calf tenderness Psych: Appearance: grossly normal Mental Status: mental status grossly normal DS: Data Data Completed and Pending Labs on day of discharge: Labs from last 24 hours 03/18/25 03/17/25 04:47 05:25 WBC 23.8 H RBC 3.79 L Hgb 11.4 L Hct 35.2 L MCV 92.9 MCH 30.1 MCHC 32.4 RDW 14.8 H Plt Count 265 MPV 9.6 HIV 1&2 Ab/P24 Ag 4thGn Negative Discharge Plan Discharge Attending physician on discharge: Oscar Solomon Consulting providers: Nichol Rodriguez Discharging Clinician: Pritesh Stacy Anticipated Discharge Date/Time: 03/18/25 07:46 Patient Disposition: Home Activity: may shower and pelvic rest Diet: regular Patient Instructions: Antibiotic Form Patient Language: Pashto Stand Alone Forms: General Discharge Information Follow-up/Referrals: Oscar Solomon MD [Physician] - Call for Appointment Discharge Medications: No Action fluticasone propion-salmeterol [Advair Diskus] 250-50 mcg/dose blister with device 1 inh inhalation BID Qty: 60 1RF vit 10-iron fum-folic 65-1 mg tablet 1 tablet PO DAILY albuterol sulfate 90 mcg/actuation HFA aerosol inhaler 1 puff inhalation Q4H PRN (Reason: Wheezing) Date of admission: 03/17/25 04:40 Primary Care Provider: PHYSICIAN,CHIEF SCHOOL FINANCE OFFICER Admitting Provider: Oscar Solomon Attending physician on admission: Oscar Solomon Condition: Stable
[2025-03-18 07:42] VITALS: BP 111/64; PULSE 90; RESP 14; TEMP 36.8; O2SAT 98
[2025-03-18] MEDS: MULTIVIT/MIN/PREN/FOL AC/IRON TABLET 1 TAB PO (08:58)
--- NOTE | 2025-03-18 09:30 | PC.NURSE ---
0835: Attempted to meet with patient and she was in the shower. Name on communication board. Will try again later this morning. 0930: Introductions were made, then consulted with patient to assess needs related to . Discussed with mother her plans to feed her infant and the experience so far. She feels confident with latching and does not have any concerns with feeding. She is still her 22 month old and inquired if the baby should always eat first before the other child nurses. Educated that feedings are the priority, and once baby is fed, the toddler may breastfeed. Resources provided for inpatient and outpatient services with the feeding sheet, mom/baby guide and name written on the communication board. Mother voiced understanding of information and will call if there is a request for assistance. Reported to the Primary RN.?
[2025-03-18 12:19] VITALS: BP 119/74; PULSE 86; RESP 16; TEMP 36.4; O2SAT 99
[2025-03-20 10:14] VITALS: BP 116/78; PULSE 94; RESP 18; TEMP 36.6; O2SAT 100
== END 2025-03-18 14:50 | disposition home or self-care (01) | DRG 807 ==
LOC: ANHOB2 03-18 07:47 → ANHLDR 03-21 08:01
PROVIDERS: Obstetrics & Gynecology; Admitting Provider Obstetrics & Gynecology; Visit Provider Obstetrics & Gynecology
DX: O70.0 First degree perineal laceration during delivery (principal); Z37.0 Single live birth; Z3A.40 40 weeks gestation of pregnancy
CPT/HCPCS: 36415; 85025; 85027; 86593; 86703; 86850; 86900; 86901; 88307; A9270; G0432; J2003; J2405; J2590; J3010; J7120